=== PATIENT | female | born 1985 ===

== ENCOUNTER 2023-08-12 08:36 | Emergency (ER) | payer OTHER ==
[~2023-08-12] VITALS: Ht 167.6 cm; Wt 86.3 kg
[~2023-08-12 08:36] MED LIST: ARIP15TA27 PO; LEVO150 PO
[2023-08-12 08:49] VITALS: BP 104/62; PULSE 64; RESP 16; TEMP 98.1
[2023-08-12] MEDS ORDERED: ACETAMINOPHEN 500 MG TABLET PO ONE (11:15)
[2023-08-12] MEDS ORDERED: METHOCARBAMOL 500 MG TABLET PO ONE (11:15)
[2023-08-12] MEDS ORDERED: ACET-66 PO (12:35)
[2023-08-12] MEDS ORDERED: METH-659 PO (12:35)
== END 2023-08-12 12:48 | disposition home or self-care (01) ==
LOC: EDUNIT# 08:36 → EMS 08:37
DX: S29.012A Strain of muscle and tendon of back wall of thorax, initial encounter (principal); F31.9 Bipolar disorder, unspecified; E05.90 Thyrotoxicosis, unspecified without thyrotoxic crisis or storm; Z88.6 Allergy status to analgesic agent; X58.XXXA Exposure to other specified factors, initial encounter; Y93.89 Activity, other specified; Y92.89 Other specified places as the place of occurrence of the external cause; Y99.8 Other external cause status
CPT/HCPCS: 72040; 99284; 73030-TC; Z7502; Z7610